=== PATIENT | female | born 1990 | race Caucasian/White ===

== ENCOUNTER 2019-04-01 16:21 | Emergency (ER) | payer OTHER ==
[2019-04-01 16:50] VITALS: BP 137/80; PULSE 69; TEMP 97.9; BMI 37.1
--- NOTE | 2019-04-01 19:39 | PDOC ---
History of Present Illness - General Chief Complaint: Lightheaded Stated Complaint: DIZZINESS Time Seen by Provider: 04/01/19 19:01 - History of Present Illness Initial Comments: 04/01/19 19:36 CHIEF COMPLAINT: N/V/D, dizziness HISTORY OF PRESENT ILLNESS: 28 yo F with hx of gastric sleeve done in January by Dr. Long at [facility], presents to ED with nausea, vomiting x 1 month, diarrhea x 2 days, and dizziness that began today. Patient is unsure if she's had a fever. Patient reports LMP was last month, unsure what date. Patient is taking omeprazole and ursodiol "I think for my gallbladder since the gastric sleeve." PCP is Power Blake. No recent travel or sick contacts. PAST MEDICAL HISTORY: Denies past medical history FAMILY HISTORY: Denies SOCIAL HISTORY: Denies tobacco, alcohol, illicit drug use. SURGICAL HISTORY: gastric sleeve ALLERGIES: milk, PCN, shrimp REVIEW OF SYSTEMS General/Constitutional: Denies fever or chills. Denies weakness, weight change. HEENT: Denies change in vision. Denies ear pain or discharge. Denies sore throat. Cardiovascular: Denies chest pain or shortness of breath. Respiratory: Denies cough, wheezing, or hemoptysis. Gastrointestinal: Nausea, vomiting, diarrhea. Denies constipation. Denies rectal bleeding. Genitourinary: Denies dysuria, frequency, or change in urination. Musculoskeletal: Denies joint or muscle swelling or pain. Denies neck or back pain. Skin and breasts: Denies rash or easy bruising. Neurologic: Dizzines. Denies loss of consciousness, or loss of sensation. Psychiatric: Denies depression or anxiety. Endocrine: Denies increased thirst. Denies abnormal weight change. Hematologic/Lymphatic: Denies anemia, easy bleeding, or history of blood clots. Allergic/Immunologic: Denies hives or skin allergy. Denies latex allergy. PHYSICAL EXAM General Appearance: Well-appearing, appropriately dressed. No apparent distress , no intoxication. HEENT: EOMI, PERRLA, normal ENT inspection, normal voice, TMs normal, pharynx normal. No conjunctival pallor. No photophobia, scleral icterus. Neck: Supple. Trachea midline. No tenderness, rigidity, carotid bruit, stridor , lymphadenopathy, or thyromegaly. Respiratory/Chest: Lungs CTAB. No shortness of breath, chest tenderness, respiratory distress, accessory muscle use. No crackles, rales, rhonchi, stridor , wheezing, dullness Cardiovascular: RRR. S1, S2. No JVD, murmur, bradycardia, tachycardia. Vascular Pulses: Dorsalis-Pedis (R): 2+, Dorsalis-Pedis (L): 2+ Gastrointestinal/Abdominal: Marked LUQ tenderness on palpation. Normal bowel sounds. Abdomen soft, non-distended. No tenderness or rebound tenderness. No organomegaly, pulsatile mass, guarding, hernia, hepatomegaly, splenomegaly. Lymphatic: No adenopathy, tenderness. Musculoskeletal/Extremities: Normal inspection. FROM of all extremities, normal capillary refill. Pelvis Stable. No CVA tenderness. No tenderness to extremities, pedal edema, swelling, erythema or deformity. Integumentary: Appropriate color, dry, warm. No cyanosis, erythema, jaundice or rash Neurologic: soda column operator II-XII intact. Fully oriented, alert. Appropriate mood/affect. Motor strength 5/5. No appreciable EOM palsy, facial droop or sensory deficit. 04/01/19 21:42 Past History - Past Medical History Allergies/Adverse Reactions: Allergies Allergy/AdvReac Type Severity Reaction Status Date / Time milk Allergy Verified 04/01/19 16:46 Penicillins Allergy Verified 04/01/19 16:46 shrimp Allergy Verified 04/01/19 16:46 Home Medications: Ambulatory Orders Norgestimate-Ethinyl Estradiol [Sprintec] 1 each PO DAILY 07/24/13 Ondansetron [Zofran Odt -] 4 mg SL TID #21 od.tablet 07/24/15 Asthma: Yes COPD: No - Immunization History Immunization Up to Date: Yes - Suicide/Smoking/Psychosocial Hx Smoking Status: No Smoking History: Never smoked Have you smoked in the past 12 months: No Number of Cigarettes Smoked Daily: 0 Information on smoking cessation initiated: No Hx Alcohol Use: No Drug/Substance Use Hx: No *Physical Exam - Vital Signs Last Vital Signs Temp Pulse Resp BP Pulse Ox 97.9 F 69 16 137/80 100 04/01/19 16:46 04/01/19 16:46 04/01/19 16:46 04/01/19 16:46 04/01/19 16:46 ED Treatment Course - LABORATORY CBC & Chemistry Diagram: 04/01/19 20:31 04/01/19 20:31 Medical Decision Making - Medical Decision Making 04/01/19 21:43 28 yo F with hx of gastric sleeve done in January by Dr. Long at [facility], presents to ED with nausea, vomiting x 1 month, diarrhea x 2 days, and dizziness that began today. -labs, CTAP labs unremarkable Patient requested multiple times to leave. Advised patient to stay to r/o acute pathology especially s/p gastric sleeve. Patient requested to sign out AMA. Patient states she has been here too long and will just f/u with her PCP. Advised patient of signs and symptoms for return to ER; patient verbalized understanding and agrees to plan. *DC/Admit/Observation/Transfer Diagnosis at time of Disposition: Epigastric pain, Dizziness - Discharge Dispostion Disposition: AGAINST MEDICAL ADVICE - Referrals Referrals: Power Blake [Primary Care Provider] - - Patient Instructions - Post Discharge Activity
[2019-04-01 20:40] LABS: BASO % 0.9 % (0-2.0); EOS % 1.3 % (0-4.5); HEMATOCRIT 40.4 % (32.4-45.2); HEMOGLOBIN 13.1 GM/dL (10.7-15.3); LYMPH % 20.8 % (8-40); MCH 28.4 pg (25.7-33.7); MCHC 32.6 g/dl (32.0-36.0); MEAN CELL VOLUME 87.3 fl (80-96); MEAN PLT VOLUME 7.8 fl (7.5-11.1); MONO % 8.8 % (3.8-10.2); NEUT % 68.2 % (42.8-82.8); PH,URINE 5.5 (5.0-8.0); PLATELET COUNT 288 K/MM3 (134-434); RBC 4.62 M/mm3 (3.60-5.2); RDW 16.7 % (11.6-15.6); URINE APPEARANCE CLEAR; URINE BILIRUBIN NEGATIVE (NEGATIVE); URINE COLOR YELLOW; URINE GLUCOSE (UA) NEGATIVE (NEGATIVE); URINE KETONE 3+ (NEGATIVE); URINE LEUK ESTERASE NEGATIVE (NEGATIVE); URINE NITRITE NEGATIVE (NEGATIVE); URINE PROTEIN NEGATIVE (NEGATIVE); URINE UROBILINOGEN 0.2 mg/dL (0.2-1.0); WHITE BLOOD COUNT 9.7 K/mm3 (4.0-10.0)
[2019-04-01 21:09] LABS: ALBUMIN 3.3 g/dl (3.4-5.0); BILIRUBIN,TOTAL 0.4 mg/dL (0.2-1); BLOOD UREA NITROGEN 10.8 mg/dL (7-18); CALCIUM 8.9 mg/dL (8.5-10.1); CREATININE 0.7 mg/dL (0.55-1.3); POTASSIUM 3.7 mmol/L (3.5-5.1); TOT PROT 7.3 g/dl (6.4-8.2)
== END 2019-04-01 21:41 | disposition left against medical advice (07) ==
LOC: JER 16:21
DX: R10.13 Epigastric pain (principal); R42 Dizziness and giddiness; Z98.84 Bariatric surgery status; Z91.011 Allergy to milk products; Z88.0 Allergy status to penicillin; Z91.013 Allergy to seafood
CPT/HCPCS: 36415; 80053; 81003; 83690; 84703; 85025; 87086; 99281-25

== ENCOUNTER 2019-06-28 16:49 | Emergency (ER) | payer OTHER ==
[2019-06-28 16:58] VITALS: BMI 34.0
--- NOTE | 2019-06-28 16:58 | PDOC ---
Rapid Medical Evaluation Time Seen by Provider: 06/28/19 16:55 Medical Evaluation: Allergies Allergy/AdvReac Type Severity Reaction Status Date / Time milk Allergy Verified 04/01/19 16:46 Penicillins Allergy Verified 04/01/19 16:46 shrimp Allergy Verified 04/01/19 16:46 06/28/19 16:56 I have performed a brief in-person evaluation of this patient. The patient presents with a chief complaint of: abd pain since yesterday, lightheaded, vomiting x 2 days (7 episodes) hx of gastric sleeve (01/2019), Dr. Carpio is surgeon, told her to come to ER for CT LMP 06/09 Pertinent physical exam findings: well appearing, generalized abd tenderness I have ordered the following: labs, urine The patient will proceed to the ED for further evaluation. Discharge Disposition - Diagnosis Abdominal pain - Referrals - Patient Instructions - Post Discharge Activity
[2019-06-28 17:28] LABS: BASO % 0.6 % (0-2.0); EOS % 1.2 % (0-4.5); LYMPH % 24.2 % (8-40); MCH 29.4 pg (25.7-33.7); MCHC 33.4 g/dl (32.0-36.0); MEAN CELL VOLUME 87.8 fl (80-96); MEAN PLT VOLUME 8.1 fl (7.5-11.1); PLATELET COUNT 289 K/MM3 (134-434); RBC 4.78 M/mm3 (3.60-5.2); RDW 14.6 % (11.6-15.6); WHITE BLOOD COUNT 10.1 K/mm3 (4.0-10.0)
[2019-06-28 18:04] LABS: ALBUMIN 3.3 g/dl (3.4-5.0); BILIRUBIN,TOTAL 0.4 mg/dL (0.2-1); BLOOD UREA NITROGEN 12.4 mg/dL (7-18); CALCIUM 8.3 mg/dL (8.5-10.1); CREATININE 0.6 mg/dL (0.55-1.3); POTASSIUM 3.8 mmol/L (3.5-5.1); TOT PROT 7.2 g/dl (6.4-8.2)
[2019-06-28 19:03] VITALS: PULSE 73; TEMP 98
--- NOTE | 2019-06-28 19:27 | PDOC ---
History of Present Illness - General Chief Complaint: Pain Stated Complaint: EVALUATION Time Seen by Provider: 06/28/19 16:55 History Source: Patient - History of Present Illness Initial Comments: 06/28/19 19:32 29-year-old female complaining of nausea vomiting and left upper quadrant pain since yesterday. Patient denies any vomiting today feels nausea. Patient had a gastric sleeve surgery January 2019. Reports some occasional nausea patient is currently on omeprazole. Patient reports that today she was unable to eat today due to the pain. Past medical history of asthma GI Dr. Carpio 06/28/19 20:27 Past History - Past Medical History Allergies/Adverse Reactions: Allergies Allergy/AdvReac Type Severity Reaction Status Date / Time milk Allergy Verified 06/28/19 16:58 Penicillins Allergy Verified 06/28/19 16:58 shrimp Allergy Verified 06/28/19 16:58 Home Medications: Ambulatory Orders Norgestimate-Ethinyl Estradiol [Sprintec] 1 each PO DAILY 07/24/13 Ondansetron [Zofran Odt -] 4 mg SL TID #21 od.tablet 07/24/15 Pantoprazole Sodium [Protonix] 40 mg PO DAILY #14 tablet. 06/28/19 Sulfamethoxazole/Trimethoprim [Bactrim Ds -] 1 tab PO BID #6 tablet 06/28/19 Asthma: Yes COPD: No - Surgical History Gastric Stapling: Yes (SLEEVE) - Immunization History Immunization Up to Date: Yes - Psycho Social/Smoking Cessation Hx Smoking Status: No Smoking History: Never smoked Have you smoked in the past 12 months: No Number of Cigarettes Smoked Daily: 0 Hx Alcohol Use: No Drug/Substance Use Hx: No *Physical Exam - Vital Signs Last Vital Signs Temp Pulse Resp BP Pulse Ox 98.0 F 73 18 99/57 L 98 06/28/19 19:02 06/28/19 19:02 06/28/19 16:55 06/28/19 19:02 06/28/19 19:02 - Physical Exam General Appearance: Yes: Appropriately Dressed Respiratory/Chest: positive: Lungs Clear, Normal Breath Sounds Cardiovascular: positive: Regular Rhythm, Regular Rate Gastrointestinal/Abdominal: positive: Normal Bowel Sounds, Tender (mild LUQ pain ), Soft Integumentary: positive: Normal Color, Dry, Warm Neurologic: positive: Fully Oriented, Alert, Normal Mood/Affect ED Treatment Course - LABORATORY CBC & Chemistry Diagram: 06/28/19 17:14 06/28/19 17:14 - ADDITIONAL ORDERS Additional order review: Laboratory Results 06/28/19 12 17:14 17:14 Sodium 139 Potassium 3.8 Chloride 105 Carbon Dioxide 30 Anion Gap 4 L BUN 12.4 Creatinine 0.6 Est GFR (CKD-EPI)AfAm 140.77 Est GFR (CKD-EPI)NonAf 121.46 Random Glucose 85 Calcium 8.3 L Total Bilirubin 0.4 AST 13 L ALT 22 Alkaline Phosphatase 121 H Total Protein 7.2 Albumin 3.3 L Lipase 103 Urine HCG, Qual Negative 06/28/19 17:14 RBC 4.78 MCV 87.8 MCHC 33.4 RDW 14.6 D MPV 8.1 Neutrophils % 66.0 Lymphocytes % 24.2 Monocytes % 8.0 Eosinophils % 1.2 Basophils % 0.6 Medical Decision Making - Medical Decision Making A: gastritis P: protonix zofran 06/28/19 20:52 tolerated po, feeling better, will d/c home 06/28/19 21:00 take pantoprazole as prescribed. prescribed bactrim x 3 days for UTI management. strict return precautions reviewed with patient Discharge - Discharge Information Problems reviewed: Yes Clinical Impression/Diagnosis: Abdominal pain Qualifiers: Abdominal location: upper abdomen, unspecified Qualified Code(s): R10.10 - Upper abdominal pain, unspecified UTI (urinary tract infection) Qualifiers: Urinary tract infection type: acute cystitis Hematuria presence: without hematuria Qualified Code(s): N30.00 - Acute cystitis without hematuria Condition: Improved Disposition: HOME - Additional Discharge Information Prescriptions: Nitrofurantoin Monohyd/M-Cryst [Macrobid -] 100 mg PO BID #14 capsule Pantoprazole Sodium [Protonix] 40 mg PO DAILY #14 tablet. - Follow up/Referral Referrals: Power Blake [Primary Care Provider] - - Patient Discharge Instructions Patient Printed Discharge Instructions: Gastritis Additional Instructions: drink plenty of fluids. 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 - Post Discharge Activity Work/Back to School Note: Back to Work
[2019-06-28 19:37] LABS: EPI CELLS 4.8 /HPF (0-5/HPF); HYALINE CASTS 0 /lpf (0-8); PH,URINE 6.5 (5.0-8.0); URINE APPEARANCE CLOUDY; URINE BACTERIA 120.8 /hpf (NEGATIVE); URINE BILIRUBIN NEGATIVE (NEGATIVE); URINE COLOR YELLOW; URINE GLUCOSE (UA) NEGATIVE (NEGATIVE); URINE KETONE NEGATIVE (NEGATIVE); URINE LEUK ESTERASE 2+ (NEGATIVE); URINE NITRITE NEGATIVE (NEGATIVE); URINE PROTEIN NEGATIVE (NEGATIVE); URINE RBC 2 /hpf (0-4); URINE WBC 26 /hpf (0-5)
[2019-06-28] MEDS ORDERED: ONDANSETRON *ODT* 4 MG TABLET SL ONE (19:37)
[2019-06-28] MEDS ORDERED: PANTOPRAZOLE 40 MG TABLET (FP) PO ONE (19:37)
[2019-06-28] MEDS ORDERED: ONDANSETRON *ODT* 4 MG TABLET ONE (19:43)
[2019-06-28] MEDS ORDERED: PANTOPRAZOLE 40 MG TABLET (FP) ONE (19:45)
[2019-06-28 21:08] VITALS: BP 103/70
== END 2019-06-28 21:11 | disposition home or self-care (01) ==
LOC: JER 16:49
DX: R10.10 Upper abdominal pain, unspecified (principal); N30.00 Acute cystitis without hematuria; Z98.84 Bariatric surgery status; J45.909 Unspecified asthma, uncomplicated
CPT/HCPCS: 36415; 80053; 81003; 83690; 84703; 85025; 99283-25; Q0162

== ENCOUNTER 2021-05-06 04:57 | Emergency (ER) | payer OTHER ==
[2021-05-06 05:09] VITALS: BMI 35.5
[2021-05-06] MEDS ORDERED: SODIUM CHLORIDE 0.9% 500 ML INFUS.BAG IV ONE (06:00)
[2021-05-06 07:19] LABS: ALBUMIN 2.9 g/dl (3.4-5.0); BLOOD UREA NITROGEN 7.9 mg/dL (7-18); CALCIUM 8.4 mg/dL (8.5-10.1)
[2021-05-06 07:22] LABS: CREATININE 0.6 mg/dL (0.55-1.3)
[2021-05-06 07:23] LABS: BASO % 0.7 % (0-2.0); HEMATOCRIT 41.8 % (32.4-45.2); HEMOGLOBIN 14.5 GM/dL (10.7-15.3); LYMPH % 14.1 % (8-40); MCH 30.2 pg (25.7-33.7); MCHC 34.6 g/dl (32.0-36.0); MEAN CELL VOLUME 87.4 fl (80-96); MEAN PLT VOLUME 7.9 fl (7.5-11.1); MONO % 7.9 % (3.8-10.2); NEUT % 75.3 % (42.8-82.8); PLATELET COUNT 292 10^3/uL (134-434); RBC 4.79 M/mm3 (3.60-5.2); RDW 14.7 % (11.6-15.6); WHITE BLOOD COUNT 9.8 K/mm3 (4.0-10.0)
[2021-05-06 07:24] LABS: BILIRUBIN,TOTAL 0.5 mg/dL (0.2-1); TOT PROT 7.4 g/dl (6.4-8.2)
[2021-05-06 08:13] LABS: EPI CELLS 25 /uL (0-25.1); HYALINE CASTS 1 /uL (0-3.1); URINE APPEARANCE CLEAR; URINE BACTERIA 26 /uL (0-1359); URINE BILIRUBIN NEGATIVE (NEGATIVE); URINE COLOR YELLOW; URINE GLUCOSE (UA) NEGATIVE (NEGATIVE); URINE KETONE TRACE (NEGATIVE); URINE LEUK ESTERASE TRACE (NEGATIVE); URINE NITRITE NEGATIVE (NEGATIVE); URINE PROTEIN NEGATIVE (NEGATIVE); URINE RBC 4 /uL (0-23.9); URINE WBC 6 /uL (0-25.8)
[2021-05-06 12:20] VITALS: BP 104/59; PULSE 75; TEMP 98.2
== END 2021-05-06 13:56 | disposition home or self-care (01) ==
LOC: JER 04:57
DX: O26.851 Spotting complicating pregnancy, first trimester (principal); Z3A.08 8 weeks gestation of pregnancy
CPT/HCPCS: 36415; 76801-TC; 80053; 81003; 84702; 85025; 86850; 86900; 86901; 87086; 99284-25

== ENCOUNTER 2021-10-19 14:10 | Inpatient (IN) | payer OTHER ==
[2021-10-19] MEDS ORDERED: DEXTROSE 5%-WATER - 500 ML IV ONE ×2 (14:45→15:45)
[2021-10-19] MEDS ORDERED: DEXTROSE 5%-LACTATED RINGERS 1,000 ML IV SCH (17:45)
[2021-10-19 21:04] VITALS: BP 111/69; PULSE 61; TEMP 98
[2021-10-19 21:38] LABS: BASO % 0.5 % (0-2.0); EOS % 1.1 % (0-4.5); HEMATOCRIT 35.1 % (32.4-45.2); HEMOGLOBIN 11.7 GM/dL (10.7-15.3); LYMPH % 15.2 % (8-40); MCH 30.3 pg (25.7-33.7); MCHC 33.4 g/dl (32.0-36.0); MEAN CELL VOLUME 90.7 fl (80-96); MEAN PLT VOLUME 8.4 fl (7.5-11.1); MONO % 8.8 % (3.8-10.2); NEUT % 74.4 % (42.8-82.8); PLATELET COUNT 253 10^3/uL (134-434); RBC 3.87 M/mm3 (3.60-5.2); RDW 14.3 % (11.6-15.6); WHITE BLOOD COUNT 14.7 K/mm3 (4.0-10.0)
[2021-10-19 21:49] LABS: INR 1.01 (0.83-1.09); PROTHROMBIN TIME (PATIENT) 11.6 SEC (9.7-13.0)
[2021-10-19 21:52] LABS: ACTIVATED PTT 27.4 SECONDS (25.2-36.5)
[2021-10-19 21:58] LABS: BLOOD UREA NITROGEN 7.4 mg/dL (7-18); CALCIUM 8.2 mg/dL (8.5-10.1)
[2021-10-19 22:02] LABS: CREATININE 0.6 mg/dL (0.55-1.3)
[2021-10-19 22:40] VITALS: BMI 39.4
[2021-10-19 22:51] LABS: HIV INTERPRETATION NEGATIVE (NEGATIVE)
== END 2021-10-19 23:20 | disposition short-term general hospital (02) | DRG 566 ==
LOC: JDEL 14:10 → JLDR 21:00
PROVIDERS: ADMIT Obstetrics & Gynecology; ATTEND Obstetrics & Gynecology
DX: O36.5930 Maternal care for other known or suspected poor fetal growth, third trimester, not applicable or unspecified (principal); Z3A.30 30 weeks gestation of pregnancy
CPT/HCPCS: 36415; 59025; 76819-TC; 80048; 85025; 85610; 85730; 86780; 86850; 86900; 86901; 87389; C9803-CS; U0003; U0005

== ENCOUNTER 2023-05-14 05:09 | Day surgery (SDC) | payer OTHER ==
[2023-05-11 13:54] VITALS: BMI 37.1
[2023-05-14 10:59] VITALS: TEMP 97.8
[2023-05-14 11:29] VITALS: BP 109/70; PULSE 67; RESP 11
== END 2023-05-14 11:29 | disposition home or self-care (01) ==
LOC: JASU-ENDO 05:09
PROVIDERS: ATTEND Internal Medicine Gastroenterology
PROC: 0DB78ZX Excision of Stomach, Pylorus, Via Natural or Artificial Opening Endoscopic, Diagnostic (ICD-10-PCS; 2023-05-14)
PROC: 0DB28ZX Excision of Middle Esophagus, Via Natural or Artificial Opening Endoscopic, Diagnostic (ICD-10-PCS; 2023-05-14)
PROC: 0DB38ZX Excision of Lower Esophagus, Via Natural or Artificial Opening Endoscopic, Diagnostic (ICD-10-PCS; principal; 2023-05-14 10:00)
DX: K22.10 Ulcer of esophagus without bleeding (principal); K29.50 Unspecified chronic gastritis without bleeding
CPT/HCPCS: 81025; 88305-TC; 88312-TC; 88342-TC